=== PATIENT | male | born 1975 | race Caucasian/White ===

== ENCOUNTER 2017-03-25 08:20 | Emergency (ER) | payer MEDICAID ==
[2017-03-25 08:28] VITALS: TEMP 97.7
[2017-03-25] MEDS ORDERED: NS 1,000 ML IV ONE ×3 (09:15→10:41)
--- NOTE | 2017-03-25 09:24 | EDPHY ---
H & P Time Seen by Provider: 03/25/17 08:38 HPI/ROS: CHIEF COMPLAINT: Cough, diarrhea HISTORY OF PRESENT ILLNESS: 41-year-old male presents with cough and diarrhea. Onset of a productive cough 3 days ago. Associated with exertional shortness of breath. No fever or congestion. He has also had diarrhea, 10-12 episodes daily for the past 5 days. He is drinking water out of [place]. He is also complaining of being cold, as he is sleeping outside and is homeless. REVIEW OF SYSTEMS: Constitutional: No fever, no chills Eyes: No visual changes ENT: No sore throat Cardiac: No chest pain Gastrointestinal: No nausea, no vomiting, no abdominal pain Genitourinary: no dysuria Musculoskeletal: frostbite to feet Skin: No rash Neurological: No headache, no numbness, no weakness Psychiatric: No depression Past Medical/Surgical History: Chronic back pain Social History: Homeless, from [place] No alcohol in over 1 month Occasional marijuana use, no other drug use Smoking Status: Former smoker Physical Exam: General Appearance: Alert, pleasant, well-appearing Eyes: Pupils equal and round, no conjunctival pallor or injection ENT, Mouth: Mucous membranes moist Neck: Normal inspection Respiratory: Lungs are clear to auscultation Cardiovascular: Regular tachycardia Gastrointestinal: Abdomen is soft and nontender Neurological: A&O, nonfocal, normal gait Skin: Warm and dry, no rash Extremities: Nontender, no pedal edema, feet are slightly red, no blisters or skin breakdown Psychiatric: Mood and affect normal Constitutional: Initial Vital Signs Temperature (C) 36.5 C 03/25/17 08:25 Heart Rate 124 H 03/25/17 08:25 Respiratory Rate 22 H 03/25/17 08:25 Blood Pressure 142/91 H 03/25/17 08:25 O2 Sat (%) 95 03/25/17 08:25 O2 Delivery Mode Room Air Allergies/Adverse Reactions: No Known Allergies Allergy (Unverified 03/25/17 08:24) Home Medications: Medication Instructions Recorded GABAPENTIN 03/25/17 Keflex 03/25/17 Tizanidine HCl 03/25/17 Medical Decision Making - Diagnostics Imaging Results: Imaging Impressions Chest X-Ray 03/25/17 08:39 Impression: Suspect airways disease. ED Course/Re-evaluation: This patient presents with cough, diarrhea and tachycardia. He does not appear dehydrated on exam. Chest x-ray reveals no evidence of pneumonia. After 1 L of normal saline, he remains tachycardia, with a heart rate of 115. Laboratory tests reveal an anion gap metabolic acidosis. I suppose that this is possibly secondary to lactic acidosis and dehydration from diarrhea. Another liter of normal saline was ordered. Venous lactate and salicylate level ordered. He denies ingestion of methanol, ethylene glycol. Patient was given a total of 3 L of normal saline while in the emergency department. Repeat Chem 7 is much improved, with a bicarb of 20. I feel that this clinical scenario is consistent with significant dehydration. He has been unable to provide a stool sample in the emergency department; I suspect that he may have Giardia given that he is drinking river water.. He is tolerating oral fluids well. I feel that he is safe and stable for discharge. He was encouraged to follow up at [facility]. Differential Diagnosis: Differential diagnosis includes but not limited to lactic acidosis, salicylate toxicity, pneumonia, thyrotoxicosis, pulmonary embolism. - Data Points Laboratory Results: Laboratory Results 03/25/17 09:00 03/25/17 12:01 03/25/17 03/25/17 03/25/17 12:01 10:20 09:00 WBC RBC Hgb Hct MCV MCH MCHC RDW Plt Count MPV Neut % (Auto) Lymph % (Auto) Thayer % (Auto) Eos % (Auto) Baso % (Auto) Nucleat RBC Rel Count Absolute Neuts (auto) Absolute Lymphs (auto) Absolute Monos (auto) Absolute Eos (auto) Absolute Basos (auto) Absolute Nucleated RBC Immature Gran % Immature Gran # D-Dimer VBG Lactic Acid 1.1 mmol/L mmol/L (0.7-2.1) Sodium 137 mEq/L mEq/L (134-144) Potassium 4.0 mEq/L mEq/L (3.5-5.2) Chloride 105 mEq/L mEq/L (97-110) Carbon Dioxide 20 mEq/l L D mEq/l (22-31) Anion Gap 12 mEq/L mEq/L (8-16) BUN 12 mg/dL mg/dL (7-23) Creatinine 1.0 mg/dL mg/dL (0.7-1.3) Estimated GFR > 60 Glucose 111 mg/dL H mg/dL (70-100) Calcium 8.3 mg/dL L D mg/dL (8.5-10.4) TSH Salicylates < 1.0 mg/dL L mg/dL (2.0-20.0) 03/25/17 03/25/17 03/25/17 09:00 09:00 09:00 WBC 16.74 10^3/uL H 10^3/uL (3.80-9.50) RBC 5.46 10^6/uL 10^6/uL (4.40-6.38) Hgb 18.1 g/dL H g/dL (13.7-17.5) Hct 50.3 % % (40.0-51.0) MCV 92.1 fL fL (81.5-99.8) MCH 33.2 pg pg (27.9-34.1) MCHC 36.0 g/dL g/dL (32.4-36.7) RDW 13.3 % % (11.5-15.2) Plt Count 368 10^3/uL 10^3/uL (150-400) MPV 10.5 fL fL (8.7-11.7) Neut % (Auto) 80.5 % H % (39.3-74.2) Lymph % (Auto) 10.9 % L % (15.0-45.0) Thayer % (Auto) 7.5 % % (4.5-13.0) Eos % (Auto) 0.1 % L % (0.6-7.6) Baso % (Auto) 0.2 % L % (0.3-1.7) Nucleat RBC Rel Count 0.0 % % (0.0-0.2) Absolute Neuts (auto) 13.48 10^3/uL H 10^3/uL (1.70-6.50) Absolute Lymphs (auto) 1.82 10^3/uL 10^3/uL (1.00-3.00) Absolute Monos (auto) 1.25 10^3/uL H 10^3/uL (0.30-0.80) Absolute Eos (auto) 0.02 10^3/uL L 10^3/uL (0.03-0.40) Absolute Basos (auto) 0.04 10^3/uL 10^3/uL (0.02-0.10) Absolute Nucleated RBC 0.00 10^3/uL 10^3/uL (0-0.01) Immature Gran % 0.8 % % (0.0-1.1) Immature Gran # 0.13 10^3/uL H 10^3/uL (0.00-0.10) D-Dimer < 0.27 ug/mLFEU ug/mLFEU (0.00-0.50) VBG Lactic Acid Sodium 137 mEq/L mEq/L (134-144) Potassium 4.1 mEq/L mEq/L (3.5-5.2) Chloride 101 mEq/L mEq/L (97-110) Carbon Dioxide 12 mEq/l L mEq/l (22-31) Anion Gap 24 mEq/L H mEq/L (8-16) BUN 13 mg/dL mg/dL (7-23) Creatinine 1.3 mg/dL mg/dL (0.7-1.3) Estimated GFR > 60 Glucose 113 mg/dL H mg/dL (70-100) Calcium 9.9 mg/dL mg/dL (8.5-10.4) TSH 1.040 uIU/mL uIU/mL (0.465-4.680) Salicylates Medications Given: Discontinued Medications Sodium Chloride (Ns) 1,000 mls @ 0 mls/hr IV ONCE ONE PRN Reason: Wide Open Stop: 03/25/17 09:16 Last Admin: 03/25/17 09:15 Dose: 1,000 mls Sodium Chloride (Ns) 1,000 mls @ 0 mls/hr IV ONCE ONE PRN Reason: Wide Open Stop: 03/25/17 09:21 Last Admin: 03/25/17 09:49 Dose: 1,000 mls Sodium Chloride (Ns) 1,000 mls @ 0 mls/hr IV ONCE ONE PRN Reason: Wide Open Stop: 03/25/17 10:42 Last Admin: 03/25/17 10:46 Dose: 1,000 mls Ibuprofen (Motrin) 600 mg PO EDNOW ONE Stop: 03/25/17 09:56 Last Admin: 03/25/17 09:59 Dose: 600 mg Ondansetron HCl (Zofran Odt) 4 mg PO EDNOW ONE Stop: 03/25/17 11:50 Last Admin: 03/25/17 11:51 Dose: 4 mg Departure - Departure Disposition: Home, Routine, Self-Care Clinical Impression: Dehydration Acute bronchitis Qualifiers: Bronchitis organism: unspecified organism Qualified Code(s): J20.9 - Acute bronchitis, unspecified Diarrhea Qualifiers: Diarrhea type: presumed infectious Qualified Code(s): A09 - Infectious gastroenteritis and colitis, unspecified Condition: Good Instructions: Dehydration (ED), Acute Bronchitis (ED), Acute Diarrhea (ED) Additional Instructions: Drink plenty of fluids. Return a stool sample to the lab. Return for worsening symptoms or any concerns. You have an appointment tomorrow 03/26 at [facility] at [address] [place] [address] ([phone]). Please check in on the 2nd floor for a financial screening at 8:40a.m. and then your appointment with a provider will be at 11 a.m. Referrals: [facility],. [Clinic] - 1-2 days without fail
[2017-03-25 09:31] LABS: % IMMATURE GRANULYOCYTES 0.8 % (0.0-1.1); ABSOLUTE IMMATURE GRANULOCYTES 0.13 10^3/uL (0.00-0.10); ADD DIFF? NO; ADD MORPH? NO; ADD SCAN? NO; ATYPICAL LYMPHOCYTE FLAG 0 (0-99); FRAGMENT RBC FLAG 0 (0-99); HEMATOCRIT 50.3 % (40.0-51.0); HEMOGLOBIN 18.1 g/dL (13.7-17.5); LEFT SHIFT FLG 10 (0-99); LIPEMIA HEMOLYSIS FLAG 90 (0-99); MEAN CELL HEMOGLOBIN 33.2 pg (27.9-34.1); MEAN CELL VOLUME 92.1 fL (81.5-99.8); MEAN PLATELET VOLUME 10.5 fL (8.7-11.7); PLATELET CLUMPS FLAG 0 (0-99); PLATELET COUNT 368 10^3/uL (150-400); RED BLOOD CELL COUNT 5.46 10^6/uL (4.40-6.38); RED CELL DISTRIBUTION WIDTH 13.3 % (11.5-15.2)
[2017-03-25 09:42] LABS: ANION GAP 24 mEq/L (8-16); CALCIUM 9.9 mg/dL (8.5-10.4); CARBON DIOXIDE 12 mEq/l (22-31); CHLORIDE 101 mEq/L (97-110); CREATININE 1.3 mg/dL (0.7-1.3); GLOMERULAR FILTRATION RATE > 60; GLUCOSE 113 mg/dL (70-100); POTASSIUM 4.1 mEq/L (3.5-5.2); SODIUM 137 mEq/L (134-144)
[2017-03-25] MEDS ORDERED: IBUPROFEN 600 MG TAB PO ONE (09:55)
[2017-03-25 10:02] LABS: SALICYLATE < 1.0 mg/dL (2.0-20.0)
[2017-03-25] MEDS ORDERED: ONDANSETRON DISINTEGRATING 4 MG TAB PO ONE (11:49)
[2017-03-25] MEDS ORDERED: ONDANSETRON DISINTEGRATING 4 MG TAB ONE (11:50)
[2017-03-25 12:35] LABS: ANION GAP 12 mEq/L (8-16); CALCIUM 8.3 mg/dL (8.5-10.4); CARBON DIOXIDE 20 mEq/l (22-31); CHLORIDE 105 mEq/L (97-110); GLOMERULAR FILTRATION RATE > 60; GLUCOSE 111 mg/dL (70-100); SODIUM 137 mEq/L (134-144)
[2017-03-25 14:11] VITALS: BP 162/101; PULSE 112; RESP 18; O2SAT 94
== END 2017-03-25 14:30 | disposition home or self-care (01) ==
DX: E86.0 Dehydration (principal); J20.9 Acute bronchitis, unspecified; Z87.891 Personal history of nicotine dependence
CPT/HCPCS: G0480

== ENCOUNTER 2017-04-28 20:31 | Emergency (ER) | payer MEDICAID ==
[2017-04-28 20:42] VITALS: RESP 16; TEMP 98.2
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
[2017-04-28 22:13] VITALS: BP 159/96; PULSE 109; O2SAT 96
== END 2017-04-28 22:07 | disposition home or self-care (01) ==
DX: G89.4 Chronic pain syndrome (principal); Z87.891 Personal history of nicotine dependence

== ENCOUNTER 2017-10-07 13:03 | Observation (INO) | payer MEDICAID ==
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
[2017-10-07] MEDS ORDERED: ceFAZolin 2 GM/SWFI 2 GM/20 ML SYR IVP ONE (13:15)
[2017-10-07] MEDS ORDERED: LR 1,000 ML IV ONE (13:57)
[2017-10-07] MEDS ORDERED: LIDOCAINE 1% 2 ML INJ ID PRN (13:57)
--- NOTE | 2017-10-07 14:43 | PDHPUP ---
History & Physical Update H&P update statement: This history and physical update is based on an assessment of the patient which was completed after admission or registration (within 24 hours), but prior to the surgery/procedure. H&P update: H&P reviewed & patient examined, no change in patient's condition since H&P completed
[2017-10-07] MEDS ORDERED: MIDAZOLAM 2 MG/2 ML VIAL IVP ONE (14:50)
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
[2017-10-07] MEDS ORDERED: ONDANSETRON 4 MG/2 ML VIAL ONE ×2 (14:59→17:34)
[2017-10-07] MEDS ORDERED: DEXAMETHASONE 4 MG/ML VIAL ONE (14:59)
[2017-10-07] MEDS ORDERED: LIDOCAINE 2% 100 MG/5 ML SYR ONE (14:59)
[2017-10-07] MEDS ORDERED: PROPOFOL 200 MG/20 ML VIAL ONE (15:00)
[2017-10-07] MEDS ORDERED: HYDROmorphONE/DILAUDID 2 MG/ML INJ ONE (15:18)
--- NOTE | 2017-10-07 16:05 | POSTANESTH ---
Post Anesthetic Evaluation Cardiovascular Status: Normal, Stable, Similar to Pre-Op Cond Respiratory Status: Normal, Stable, Similar to Pre-op Cond. Level of Consciousness/Mental Status: Can Participate in Eval, Moderately Sleepy Pain Control: Adequate, Prn Tx Ordered Nausea/Vomiting Control: Adequate, Prn Tx Ordered Complications Possibly Related to Anesthesia: None Noted
[2017-10-07] MEDS ORDERED: ALBUTEROL 3 ML DEYVIAL IH PRN (16:06)
[2017-10-07] MEDS ORDERED: HYDROCODONE/APAP 5/325 TAB PO PRN (16:06)
[2017-10-07] MEDS ORDERED: ONDANSETRON 4 MG/2 ML VIAL IVP PRN ×2 (16:06→17:26)
[2017-10-07] MEDS ORDERED: LABETALOL HCL 5 MG/ML 20 ML MDV IVP PRN (16:06)
[2017-10-07] MEDS ORDERED: OXYCODONE/APAP 5/325 TAB PO PRN (16:06)
[2017-10-07] MEDS ORDERED: NALOXONE HCL 0.4 MG/ML INJ IVP PRN (16:06)
[2017-10-07] MEDS ORDERED: DEXAMETHASONE 4 MG/ML VIAL IVP PRN (16:06)
[2017-10-07] MEDS ORDERED: PROMETHAZINE HCL 25 MG/ML INJ IVP PRN ×2 (16:06→17:26)
[2017-10-07] MEDS ORDERED: MEPERIDINE 25 MG/ML SYR IVP PRN (16:06)
[2017-10-07] MEDS ORDERED: fentaNYL 100 MCG/2 ML INJ ONE ×3 (16:25→17:34)
[2017-10-07] MEDS ORDERED: hydrALAZINE 20 MG/ML VIAL ONE (16:55)
[2017-10-07] MEDS ORDERED: LABETALOL HCL 5 MG/ML 20 ML MDV ONE (16:55)
[2017-10-07] MEDS ORDERED: BUPIVACAINE 0.5% 30 ML SDV ONE (17:02)
[2017-10-07] MEDS ORDERED: KETOROLAC 30 MG/1 ML SDV ONE (17:09)
[2017-10-07] MEDS ORDERED: ONDANSETRON DISINTEGRATING 4 MG TAB PO PRN (17:26)
[2017-10-07] MEDS ORDERED: TEMAZEPAM 15 MG CAP PO PRN (17:26)
[2017-10-07] MEDS ORDERED: ACETAMINOPHEN 325 MG TAB PO PRN (17:26)
[2017-10-07] MEDS ORDERED: oxyCODONE IR 5 MG TAB PO PRN (17:26)
--- NOTE | 2017-10-07 17:26 | POSTOPPROG ---
Post Op Note Date of Operation: 10/07/17 Surgeon: Tolu Rutherford Defensive Driving Instructor: Coreen Comer PA-C Anesthesiologist: Amaris Anesthesia: GET(General Endotracheal) Pre-op Diagnosis: R ACL tear, lateral meniscus tear Post-op Diagnosis: R ACL tear, lateral meniscus tear Procedure: R ACL reconstruction, lateral meniscectomy Findings: See full dictation Inf/Abcess present in the surg proc area at time of surgery?: No Depth: Organ Space EBL: 50-100
[2017-10-07] MEDS ORDERED: HYDROmorphONE/DILAUDID 4 MG TAB PO PRN (17:31)
[2017-10-07] MEDS ORDERED: HYDROmorphONE/DILAUDID 1 MG/ML INJ ONE (17:35)
[2017-10-07] MEDS: fentaNYL 100 MCG/2 ML INJ IVP PRN ×2 (17:36→17:52)
[2017-10-07] MEDS: HYDROmorphONE/DILAUDID 1 MG/ML INJ IVP PRN ×4 (17:40→22:26)
[2017-10-07] MEDS ORDERED: PROMETHAZINE HCL 25 MG/ML INJ ONE (17:42)
[2017-10-07 19:00] VITALS: RESP 16
[2017-10-07 20:48] VITALS: TEMP 98.4
[2017-10-07 21:48] VITALS: BP 143/121; PULSE 125; O2SAT 92
[2017-10-07] MEDS ORDERED: DIAZEPAM 5 MG TAB PO PRN (22:26)
[2017-10-07] MEDS ORDERED: MAGNESIUM HYDROXIDE 30 ML UDCUP PO PRN (22:26)
[2017-10-07] MEDS ORDERED: BISACODYL 10 MG SUPP PR PRN (22:26)
[2017-10-07] MEDS ORDERED: LACTULOSE 20 GM/30 ML UDCUP PO PRN (22:26)
[2017-10-07] MEDS ORDERED: PHARMACY PAIN CONSULT 1 EA MISC PRN (22:26)
[2017-10-07] MEDS ORDERED: POLYETHYLENE GLYCOL 3350 17 GM PKT PO PRN (22:26)
[2017-10-07] MEDS ORDERED: KETOROLAC 15 MG/1 ML SDV IVP PRN (22:26)
[2017-10-07] MEDS ORDERED: HYDROmorphone HCL/NS/PF 0.4 MG/2 ML SYR IVP PRN (22:31)
[2017-10-07] MEDS ORDERED: ceFAZolin 2 GM/DEXTROSE 100 ML IV SCH (23:00)
[2017-10-08] MEDS ORDERED: METHOCARBAMOL 750 MG TAB PO SCH (00:15)
--- NOTE | 2017-10-08 05:49 | GOP ---
[f rep st] OPERATIVE REPORT DATE OF OPERATION: 10/07/2017 SURGEON: Tolu Rutherford MD [employer] [facility] OFFICIAL: Coreen Comer PA-C. ANESTHESIA: General. PREOPERATIVE DIAGNOSIS: 1. Right knee anterior cruciate ligament tear, grade 3. 2. Right knee lateral meniscus tear. 3. 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 POSTOPERATIVE DIAGNOSIS: 1. Right knee anterior cruciate ligament tear, grade 3. 2. Right knee lateral meniscus tear. 3. 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 PROCEDURE PERFORMED: 1. Arthroscopy right knee, partial lateral meniscectomy. 2. Arthroscopy, right knee chondroplasty femoral condyle. 3. Arthroscopic assisted anterior cruciate ligament reconstruction, right knee with 4 strand semiten dinosus autograft. FINDINGS: The patient had complete absence of the ACL attachment on the femur. There was a bit of s carred ACL still that had swung into the PCL and attached to that area. The lateral meniscus had a p artial lateral meniscectomy. There was further tearing of the remaining meniscal rim with a tear ext ending into the popliteal recess. Popliteal tendon was intact. The articular surface in the lateral compartment had a fairly large area of grade 3 chondral surface loss. The patellofemoral articulati on had some grade 2 chondral surface fibrillation. The medial compartment was free of degenerative c hange, although the medial meniscus had previous partial medial meniscectomy. Our attention was directed to the lateral meniscus. This was trimmed back to a stable meniscal rim. A subtotal meniscectomy was essentially what was left after this procedure. He had previous partial lateral meniscectomy before. The medial meniscus was probed and no significant tear was noted. The PCL was intact. Attention was directed to the ACL stump. This was trimmed with the shaver. A notchplasty was then p erformed with a quarter-inch osteotome. Segments of osteoarticular cartilage were removed with a pit uitary rongeur. Notchplasty was completed with a bur. The [id number] position was cleared off wit h a curette and shaver. The graft was then harvested through an anterior medial incision. It brooke d through dermal subcutaneous tissues. The sartorius expansion was split longitudinally. The semite ndinosus tendon was reflected off its periosteal attachments on the tibia. The tendon was then reefe d with a #5 FiberWire or a Parcus suture. The leading sutures were brought through the eyelet of a t endon stripper. The tendon stripper was passed up through the posterior thigh. There were attachmen ts to the lateral gastrocs that were detached. The tendon was retrieved. It measured approximately 31 cm in length. We trimmed the end down to a 30 cm graft. This was then cut into 2 equal lengths. Each end of the graft was reefed with a #2 FiberWire suture. The scope was reinserted. Our drill g uide was set at 55 degrees on the tibial side. A guide pin was passed up to the isometric point of t he tibial PCL insertion site. The tunnel dimensions were measured. We elected to use a size 10 ream er on the tibia. A solid cannulated reamer was passed over the guidewire and up through the tibial p lateau. We subsequently used the CoSchedule guide system for the femoral side. The guide was positione d in the [id number]-[id number]-ynt position. A 7 mm anterior guide was selected. The Nitinol guidewire was passe d up through the lateral femoral condyle and retrieved through a small puncture incision of the later al thigh. Tunnel length was then measured. A 50 mm length tunnel was noted. We elected to insert 1 5 mm up into the tibial side. The graft was marked at 20 mm so that we knew where we were at when we were passing the graft. The leading sutures of the graft were passed through the loops on the GFS a djustable button system from Parcus. The leading sutures on the Parcus button were then passed throug h the eyelet of the passing pin. The passing pin was brought up through the tunnels. The graft was pulled up into position. We then watched the graft as we tensioned it up into the tibia. The graft was then secured distally over 6.5 cancellous screw and washer that was passed through a previously d rilled 4.5 drill hole and was tapped with a 6.5 tap. We felt we had good fixation and excellent stab ility after the graft was secured. During the tensioning of the graft, the knee was put in about 45 degrees flexion and a slight posterior drawer had been applied. The leading sutures were then removed. The trailing sutures were tied with a 6.5 cancellous screw and washer. These were the n trimmed. Closure was performed with a 2-0 Vicryl in a sartorius expansion, followed by 2-0 Vicryl in the subcutaneous tissues, followed by 3-0 Ethilon in a running subcuticular fashion on the skin. Arthroscopy portals were closed with 3-0 nylon. Sterile compression dressing was applied, followed b y DEVEN hose and a knee brace. The patient tolerated procedure well, was transferred back to recovery in stable condition. No operative complications. DESCRIPTION OF PROCEDURE: The patient was taken to the operating room after general anesthesia place d in the supine position. The right leg was positioned in a leg moyer after examination. Preoperat kate exam revealed grade 3 laxity to the anterior cruciate ligament on Kalia's and anterior drawer m aneuvers. Posterior drawer and posterior sag test were normal. The knee was stable to varus, valgus stressing. The leg was prepped and draped in normal sterile fashion. An arthroscope was inserted through an ant erolateral incision. Superolateral incision was made followed by insertion of the outflow cannula. Anteromedial incision was made followed by insertion of the hook probe. Systematic exploration of th e joint was performed. COMPLICATIONS: None. /[id number]/MODL
[2017-10-08] MEDS ORDERED: ASPIRIN 325 MG TAB PO SCH (09:00)
--- NOTE | 2017-10-08 12:07 | ASDISCHSUM ---
Discharge Information Plan Status: Medically Cleared to Leave: Discharge Date:10/08/2017 01:20 AM CM D/C Disposition:Against Medical Advice ADT D/C Disposition:Against Medical Advice Projected Discharge Date:10/08/2017 01:20 AM Transportation at D/C: Discharge Delay Reason: Follow-Up Date:10/08/2017 01:20 AM Discharge Slot: Final Diagnosis: Placement Information Patient Contact Information Contact Name:MEHRDADSARTHAKTAMMYISISKAREN Relationship:Mother Address:[address] [place] [address] Home Phone: Work Phone: City:[place] Alternate Phone: State/[place] Code:[place] [address] Email: Financial Information Financial Class: Primary Plan 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
--- NOTE | 2017-10-08 12:07 | ASDISCHSUM ---
Discharge Information Plan Status: Medically Cleared to Leave: Discharge Date:10/08/2017 01:20 AM CM D/C Disposition:Against Medical Advice ADT D/C Disposition:Against Medical Advice Projected Discharge Date:10/08/2017 01:20 AM Transportation at D/C: Discharge Delay Reason: Follow-Up Date:10/08/2017 01:20 AM Discharge Slot: Final Diagnosis: Placement Information Patient Contact Information Contact Name:MEHRDADSARTHAKTAMMYISISKAREN Relationship:Mother Address:[address] [place] [address] Home Phone: Work Phone: City:[place] Alternate Phone: State/[place] Code:[place] [address] Email: Financial Information Financial Class: Primary Plan Desc:MEDICAID HEALTH FIRST WATCHGUARD Primary Plan Number:[id number] Secondary Plan Desc: Secondary Plan Number: Assessment Information Intervention Information
--- NOTE | 2017-10-08 12:07 | ASDISCHSUM ---
Discharge Information Plan Status: Medically Cleared to Leave: Discharge Date:10/08/2017 01:20 AM CM D/C Disposition:Against Medical Advice ADT D/C Disposition:Against Medical Advice Projected Discharge Date:10/08/2017 01:20 AM Transportation at D/C: Discharge Delay Reason: Follow-Up Date:10/08/2017 01:20 AM Discharge Slot: Final Diagnosis: Placement Information Patient Contact Information Contact Name:MEHRDADSARTHAKTAMMYISISKAREN Relationship:Mother Address:[address] [address] Home Phone: Work Phone: City:[place] Alternate Phone: State/[place] Code:[place] [address] Email: Financial Information Financial Class: Primary Plan 

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
== END 2017-10-08 01:20 | disposition left against medical advice (07) ==
LOC: FSGY 13:03 → UNDOADMOB 17:26 → F3N 17:26
PROVIDERS: ADMIT Orthopaedic Surgery Sports Medicine; ATTEND Orthopaedic Surgery Sports Medicine
DX: S83.511A Sprain of anterior cruciate ligament of right knee, initial encounter (principal); S83.281A Other tear of lateral meniscus, current injury, right knee, initial encounter; M94.261 Chondromalacia, right knee
CPT/HCPCS: J0171; J0360; J0690; J1100; J1170; J1885; J2001; J2250; J2405; J2550; J2704; J3010; J3490

== ENCOUNTER 2018-01-27 10:44 | Emergency (ER) | payer MEDICAID ==
[2018-01-27 12:43] LABS: PLATELET COUNT 341 10^3/uL (150-400)
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
[2018-01-27 22:27] VITALS: BP 162/111; PULSE 110; RESP 20; TEMP 97.9; O2SAT 97
== END 2018-01-27 22:27 | disposition home or self-care (01) ==
LOC: EEVIPCON 10:44
DX: F31.9 Bipolar disorder, unspecified (principal); Z79.82 Long term (current) use of aspirin
CPT/HCPCS: 80305; G0480

== ENCOUNTER 2018-02-20 00:52 | Emergency (ER) | payer MEDICAID ==
--- NOTE | 2018-02-20 01:14 | EDPHY ---
H & P Stated Complaint: SOB, sore throat, cough x2 days Time Seen by Provider: 02/20/18 01:10 HPI/ROS: HPI CHIEF COMPLAINT: Shortness of breath and coughing HISTORY OF PRESENT ILLNESS: Patient is a 42-year-old male, he has chronic neck and chronic back pain he smokes tobacco daily, additionally uses marijuana and CBD oral, he presents to the emergency room with 2 days of cough. States cough has changed from clear sputum to yellow sputum. He has not had any fever. But he does complain of fatigue. Upon arrival to the emergency room he is complaining of shortness of breath, cough and wheezing. On exam here his vital signs noted be tachycardic however no hypoxia he is afebrile. However he is complaining of bronchitic sounding cough and wheezing. Past Medical History: Chronic neck and chronic back pain, daily tobacco use Past Surgical History: Denies recent surgery Social History: homeless, daily tobacco use marijuana and CBD Family History: Noncontributory ROS REVIEW OF SYSTEMS: A comprehensive 10 point review of systems is otherwise negative aside from elements mentioned in the history of present illness. Exam Constitutional appears well nontoxic no acute distress, triage nursing summary reviewed, vital signs reviewed, awake/alert. Noted be tachycardic upon arrival. No hypoxia. Eyes normal conjunctivae and sclera, EOMI, PERRLA. HENT normal inspection, atraumatic, moist mucus membranes, no epistaxis, neck supple/ no meningismus, no raccoon eyes. Respiratory bronchitic sounding breath sounds bilaterally. Wheezing family bilaterally. Bronchitic sounding cough on exam. Cardiovascular rate normal, regular rhythm, no murmur, no edema, distal pulses normal. Gastrointestinal soft, non-tender, no rebound, no guarding, normal bowel sounds, no distension, no pulsatile mass. Genitourinary no CVA tenderness. Musculoskeletal no midline vertebral tenderness, full range of motion, no calf swelling, no tenderness of extremities, no meningismus, good pulses, neurovascularly intact. Skin pink, warm, & dry, no rash, skin atraumatic. Neurologic awake, alert and oriented x 3, AAOx3, moves all 4 extremities equally, motor intact, sensory intact, CN II-XII intact, normal cerebellar, normal vision, normal speech. Psychiatric normal mood/affect. Heme/Lymph/Immune no lymphadenopathy. Differential Diagnosis: Includes but is not limited to in a particular order acute bronchitis, viral syndrome, upper respiratory tract infection, bacterial pneumonia, pneumothorax, CHF Medical Decision Making: Plan for this patient DuoNeb breathing treatment, chest x-ray two view, prednisone 60 mg, re-evaluate. Re-evaluation: Chest x-ray two view reviewed. No evidence of pneumothorax. I do not appreciate a significant consolidation. There is bronchitis seen on the chest x -ray. No pneumothorax. Image interpreted myself. Two view x-ray. 0144: Patient re-evaluate this time is received a DuoNeb breathing treatment. He does state this improved his symptoms. He feels much better. He is moving good air. I have additionally given him prednisone 60 mg p.o. Here, azithromycin 500 mg p.o.. Clinically has bronchitis. Most likely an upper respiratory tract infection. Will place him on prednisone burst for 5 days, albuterol inhaler 2 puffs every 4 hr, as well as azithromycin. I do recommend he gets [id number] D congestion like Mucinex. And additionally return precautions discussed. I recommend he stop smoking cigarettes or marijuana. Stays well hydrated. Return emergency room if there is worsening symptoms he understands. 0500: PATIENT HAS BEEN SLEEPING HERE MOST OF THE EVENING. HE IS RESTING COMFORTABLY. VITAL SIGNS ARE STABLE. HE IS OKAY WITH DISCHARGE Antibiotic, prednisone, albuterol provided. Return precautions discussed. He understands. Source: Patient - Personal History Current Tetanus/Diphtheria Vaccine: Yes Current Tetanus Diphtheria and Acellular Pertussis (TDAP): Yes - Medical/Surgical History Hx Asthma: No Hx Chronic Respiratory Disease: No Hx Diabetes: No Hx Cardiac Disease: No Hx Renal Disease: No Hx Cirrhosis: No Hx Alcoholism: No Hx HIV/AIDS: No Hx Splenectomy or Spleen Trauma: No Other PMH: depression/acl surg/appy/choly, orif jaw, chronic back pain, bipolar. - Social History Smoking Status: Former smoker Constitutional: Initial Vital Signs Temperature (C) 36.9 C 02/20/18 01:06 Heart Rate 120 H 02/20/18 01:06 Respiratory Rate 20 02/20/18 01:06 Blood Pressure 126/59 H 02/20/18 01:06 O2 Sat (%) 97 02/20/18 01:06 O2 Delivery Mode Room Air Allergies/Adverse Reactions: morphine Allergy (Verified 10/07/17 13:56) Other-Enter Comments Home Medications: Medication Instructions Recorded Ibuprofen [Motrin (*)] 200 mg PO DAILY PRN 10/07/17 Albuterol [Proventil Inhaler HFA 1 - 2 puffs IH Q4H #1 mdi 02/20/18 (*)] Azithromycin [Zithromax] 250 mg PO DAILY #6 tab 02/20/18 predniSONE 60 mg PO DAILY #15 tab 02/20/18 Medical Decision Making - Data Points Medications Given: Discontinued Medications Albuterol/Ipratropium (Duoneb) 3 ml IH EDNOW ONE Stop: 02/20/18 01:18 Last Admin: 02/20/18 01:22 Dose: 3 ml Azithromycin (Zithromax) 500 mg PO EDNOW ONE PRN Reason: Protocol Stop: 02/20/18 01:44 Last Admin: 02/20/18 01:46 Dose: 500 mg Prednisone (Prednisone) 60 mg PO EDNOW ONE Stop: 02/20/18 01:18 Last Admin: 02/20/18 01:22 Dose: 60 mg Departure - Departure Disposition: Home, Routine, Self-Care Clinical Impression: Bronchitis Condition: Good Instructions: Acute Bronchitis (ED), Wheezing (ED) Additional Instructions: 1. Stay well-hydrated drink lots of fluids. 2. Antibiotics as prescribed. 3. Prednisone as prescribed. 4. Albuterol inhaler as prescribed. Referrals: NONE *PRIMARY CARE P,. [Primary Care Provider] - As per Instructions Prescriptions: Albuterol [Proventil Inhaler HFA (*)] 1 - 2 puffs IH Q4H #1 mdi Azithromycin [Zithromax] 250 mg PO DAILY #6 tab predniSONE 60 mg PO DAILY #15 tab
[2018-02-20] MEDS ORDERED: predniSONE 20 MG TAB PO ONE (01:17)
[2018-02-20] MEDS ORDERED: IPRATROPIUM/ALBUTEROL 3 ML DEYVIAL IH ONE (01:17)
[2018-02-20] MEDS ORDERED: AZITHROMYCIN 250 MG TAB PO ONE (01:43)
[2018-02-20 05:00] VITALS: BP 127/77; PULSE 66; RESP 16; TEMP 98.1; O2SAT 96
== END 2018-02-20 05:00 | disposition home or self-care (01) ==
DX: J20.9 Acute bronchitis, unspecified (principal); Z87.891 Personal history of nicotine dependence
CPT/HCPCS: J7512

== ENCOUNTER 2018-03-01 16:17 | Emergency (ER) | payer MEDICAID ==
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
[2018-03-01 17:06] VITALS: BP 154/98; PULSE 99; RESP 14; TEMP 98.1; O2SAT 98
== END 2018-03-01 17:06 | disposition home or self-care (01) ==
LOC: EDUNIT# → EDBD
DX: J40 Bronchitis, not specified as acute or chronic (principal)

== ENCOUNTER 2018-03-24 21:28 | Emergency (ER) | payer MEDICAID ==
[2018-03-24] MEDS ORDERED: ONDANSETRON 4 MG/2 ML VIAL IVP ONE (22:08)
[2018-03-24] MEDS ORDERED: NS 1,000 ML IV ONE (22:08)
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
[2018-03-24] MEDS ORDERED: ONDANSETRON 4MG PREPACK#2 BTL TAKEHOME ONE (22:15)
[2018-03-24 22:41] LABS: PLATELET COUNT 297 10^3/uL (150-400)
[2018-03-24 23:17] VITALS: BP 158/103
== END 2018-03-24 23:19 | disposition home or self-care (01) ==
DX: R11.2 Nausea with vomiting, unspecified (principal); E86.9 Volume depletion, unspecified; F17.200 Nicotine dependence, unspecified, uncomplicated
CPT/HCPCS: 96374; J2405

== ENCOUNTER 2018-03-26 19:27 | Emergency (ER) | payer MEDICAID ==
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
[2018-03-26 20:15] VITALS: BP 126/84
== END 2018-03-26 20:36 | disposition home or self-care (01) ==
DX: S76.311A Strain of muscle, fascia and tendon of the posterior muscle group at thigh level, right thigh, initial encounter (principal); F17.200 Nicotine dependence, unspecified, uncomplicated; X58.XXXA Exposure to other specified factors, initial encounter; Y92.410 Unspecified street and highway as the place of occurrence of the external cause; Y99.8 Other external cause status; Y93.55 Activity, bike riding
CPT/HCPCS: L1830